=== PATIENT | female | born 1990 | race Caucasian/White ===

== ENCOUNTER 2017-08-10 11:07 | Emergency (ER) | payer OTHER | END 2017-08-10 13:28 | disposition home or self-care (01) | LOC: E/R 13:28 | DX: S89.92XA Unspecified injury of left lower leg, initial encounter (principal); X58.XXXA Exposure to other specified factors, initial encounter; Y92.89 Other specified places as the place of occurrence of the external cause; Z79.84 Long term (current) use of oral hypoglycemic drugs | CPT/HCPCS: 73562; 99283-25 ==